=== PATIENT | male | born 1980 | race African-American/Black ===

== ENCOUNTER 2022-01-09 23:16 | Emergency (ER) | payer BC ==
--- OUTSIDE RECORDS SUMMARY | 2022-01-09 23:18 | XMS REPORT | Continuity of Care Document ---
:1980 Author Organization [facility] t Address [address] [place] [address] Care Team Providers Name Role Phone Chema Sandy Attending Clinician Unavailable DR MARTA Attending Clinician Unavailable SANDY Admitting Clinician Unavailable DR MARTA Admitting Clinician Unavailable Problems This patient has no known problems. Allergies, Adverse Reactions, Alerts Allergy Allergy Status Severity Reaction(s) Onset Inactive Treating Comm ents Source Name Type Date Date Clinician No Known DA Active [facility] s Medications Ordered Filled Start Stop Current Ordering Indication Dosage Frequency Signature Comments Components Source Medication Medication Date Date Medication? Clinician (SIG) Name Name Methylpheni Methylpheni 2020-0 2020- No Suraj [address] [facility] date HCl ER date HCl ER 05-29 [facility] before [facility]:00: 00:00 [facility] 00 :00 in the l morning Outpat[facility] ent Clinics Vital Signs Vital Name Observation Time Observation Value Comments Source Weight 2020-12-18 04:15:00 112.94 KG Height 2020-12-18 04:15:00 182.88 CM Height 2020-12-14 14:25:00 182.88 CM Weight 2020-12-14 14:25:00 112.03 KG Procedures Procedure Date / Time Performed Performing Clinician [facility] e EXCISION OF RIGHT FOOT 2020-12-18 00:00:00 [facility] Medical TENDON OPEN Center Encounters Start End Encounter Admission Attending Care Care Encounter Source Date/Time Date/Time Type Type Clinicians Facility Department ID 2021-11-15 Out[place], [place] [id number] [facility] 12:02:01 [facility] 2021-11-05 Outpatient Sandy, [place] [id number] [facility] 13:23:00 [facility]aj [id number] [facility] 2021-10-06 Outpatient Sandy, [place] [id number] [facility] 14:01:42 [facility]aj [id number] [facility] 2021-10-06 Outpatient Sandy, [place] [id number] [facility] 13:33:55 Suraj [id number] [facility] 2021-10-06 Outpatient Sandy, [place] [id number] [facility] 13:33:02 Suraj [id number] [facility] 2021-10-06 Outpatient Sandy, [place] [id number] [facility] 12:54:19 Suraj [id number] [facility] 2021-10-06 Outpatient Sandy, [place] [id number] [facility] 12:53:52 Suraj [id number] [facility] 2021-10-06 Outpatient Sandy, [place] [id number] [facility] 12:47:59 Suraj [id number] [facility] 2021-10-06 Outpatient Sandy, [place] [id number] [facility] 12:47:17 Suraj [id number] [facility] 2021-10-06 Outpatient Sandy, [place] [id number] [facility] 12:45:26 Suraj [id number] [facility] 2021-10-06 Outpatient Sandy, [place] [id number] [facility] 12:43:46 Suraj [id number] [facility] 2021-10-06 Outpatient Sandy, STLMLC [facility] 12:40:28 Suraj [id number] [facility] 2021-10-06 Outpatient Sandy, STLMLC [facility] 12:39:36 Suraj [id number] [facility] 2021-10-06 Outpatient Sandy, STLMLC [facility] 11:56:17 Suraj [id number] [facility] 2021-10-06 Outpatient Sandy, STLMLC [facility] 11:26:29 Suraj [id number] [facility] 2022-01-07 2022-01-07 ambulatory [facility] [id number] [facility] 2021-12-28 2021-12-28 ambulatory [facility] [id number] [facility] 2021-12-06 2021-12-06 ambulatory [facility] [id number] [facility] 2021-10-21 2021-10-21 ambulatory [facility]C [facility] [id number] [facility] 2021-09-20 2021-09-20 ambulatory [facility] [id number] [facility] 2021-08-04 2021-08-04 ambulatory [facility] [id number] [facility] 2021-06-02 2021-06-02 Outpatient [facility] [id number] [facility] 2021-04-19 2021-04-19 Outpatient [facility] [id number] [facility] 2021-04-12 2021-04-12 Outpatient [facility] [id number] [facility] 2021-04-12 2021-04-12 Outpatient [facility] [id number] [facility] 2021-04-12 2021-04-12 Outpatient [facility] [id number] [facility] 2021-03-25 2021-03-25 Outpatient [facility] [id number] [facility] 2021-02-24 2021-02-24 Outpatient [facility] [id number] [facility] 2020-12-30 2020-12-30 Outpatient [facility] [id number] [facility] 2020-12-18 2020-12-18 Outpatient Shirin [facility]O [facility] [id number] [address] 04:16:00 06:26:00 [facility] 2020-12-07 2020-12-07 Outpatient [facility] [id number] [facility] 2020-11-23 2020-11-23 Outpatient [facility] [id number] [facility] 2020-11-03 2020-11-03 Outpatient [facility] [id number] [facility] 2020-10-05 2020-10-05 Outpatient [facility] [id number] [facility] 2020-08-31 2020-08-31 Outpatient [facility] [id number] [facility] 2020-08-31 2020-08-31 Outpatient [facility] [id number] [facility] 2020-06-29 2020-06-29 Outpatient [facility] [id number] [facility] 2020-05-29 2020-05-29 [facility] [id number] [facility] 08[facility]21:00 08:21:00 t [employer] [facility] 2020-04-28 2020-04-28 [facility] [id number] [facility] 11:30:00 11:30:00 t [employer] [facility] 2020-03-23 2020-03-23 [facility] [id number] [facility] 08:45:00 08:45:00 t [employer] [facility] 2020-02-24 2020-02-24 [facility] [id number] [facility] 11:00:00 11:00:00 t [employer] [facility] Results This patient has no known results.
--- NOTE | 2022-01-10 00:04 | EDPHYS ---
Physician Documentation [facility] Name: Ronald Salazar Age: 41 yrs Sex: Male : 1980 Arrival Date: 01/09/2022 Time: 23:19 Bed 4 Private MD: JOCELYNE Physician Deion Ugarte HPI: 01/10 00:01 This 41 yrs old Black Male presents to ER via Ambulatory with complaints of Allergic jmm Reaction. 00:01 The patient presents with rash, redness of skin. Onset: The symptoms/episode jmm began/occurred gradually, 5 day(s) ago. Associated signs and symptoms: Pertinent positives: swelling. This a 41-year-old male with history of hypertension the presents emerged part with complaints of facial swelling symptoms initially began this past Monday with some localized swelling to the right side of his face. Denies known allergen. Patient now believes that he may have been exposed to poison tra. Denies shortness of breath or vomiting. Patient denies fever. Historical: - Allergies: 01/09 23:27 No Known Allergies; jb4 - Home Meds: 23:27 amlodipine oral [Active]; losartan oral [Active]; Methophenodate [Active]; jb4 - PMHx: 23:27 HTN; ADHD; jb4 - PSHx: 23:27 right foot; jb4 - Immunization history:: Adult Immunizations up to date. - Social history:: Smoking status: Patient denies any tobacco usage or history of. Patient uses alcohol, occasionally. Patient/guardian denies using street drugs. ROS: 01/10 00:01 Constitutional: Negative for fever, chills, and weight loss, Cardiovascular: Negative jmm for chest pain, palpitations, and edema, Respiratory: Negative for shortness of breath, cough, wheezing, and pleuritic chest pain. Skin: Positive for erythema. All other systems are negative. Exam: 00:01 Constitutional: This is a well developed, well nourished patient who is awake, alert, jmm and in no acute distress. 00:01 Chest/axilla: Normal chest wall appearance and motion. Cardiovascular: Regular rate and rhythm. No edema appreciated Respiratory: Normal respirations, no respiratory distress appreciated Abdomen/GI: Non distended, soft Back: Normal ROM Skin: General appearance color normal MS/ Extremity: Moves all extremities, no obvious deformities appreciated, no edema noted to the lower extremities Neuro: Awake and alert Psych: Behavior is normal, Mood is normal, Patient is cooperative and pleasant 00:01 Head/face: Facial erythema noted. 00:01 ENT: No pharyngeal edema appreciated. Vital Signs: 01/09 23:24 BP 144 / 109; Pulse 91; Resp 16; Temp 97.9(TE); Pulse Ox 98% on R/A; Weight 108.86 kg jb4 (R); Height 6 ft. 1 in. (185.42 cm) (R); Pain 10/10; 01/10 00:18 BP 141 / 99; Pulse 89 MON; Resp 18 S; Pulse Ox 97% on R/A; as6 01/09 23:24 Body Mass Index 31.66 (108.86 kg, 185.42 cm) jb4 MDM: 01/09 23:37 Patient medically screened. [facility] 01/10 00:03 Data reviewed: vital signs, nurses notes. Counseling: I had a detailed discussion with george the patient and/or guardian regarding: the historical points, exam findings, and any diagnostic results supporting the discharge/admit diagnosis, the need for outpatient follow up, to return to the emergency department if symptoms worsen or persist or if there are any questions or concerns that arise at home. Administered Medications: 00:18 Drug: Decadron (dexamethasone) 10 mg Route: IM; Site: right deltoid; as6 00:24 Follow up: Response: No adverse reaction as6 Disposition Summary: 01/10/22 00:04 Discharge Ordered Location: Home [facility] Condition: Stable [facility] Diagnosis - Rash and other nonspecific skin eruption [facility] Followup: [facility] - With: Private Physician - When: 2 - 3 days - Reason: Recheck today's complaints, Continuance of care, Re-evaluation by your physician Discharge Instructions: - Discharge Summary Sheet [facility] - Rash, Adult [facility] Forms: - Medication Reconciliation Form [facility] - Thank You Letter [facility] - Antibiotic Education [facility] - Prescription Opioid Use [facility] Prescriptions: - Cephalexin 500 mg Oral Capsule - take 1 capsule by ORAL route every 6 hours for 10 days; 40 capsule; Refills: 0, [facility] Product Selection Permitted - Hydroxyzine HCl 25 mg Oral Tablet - take 1 tablet by ORAL route every 6 hours As needed; 30 tablet; Refills: 0, [facility] Product Selection Permitted - Prednisone 20 mg Oral Tablet - take 3 tablets by ORAL route once daily for 5 days Please take 3 tabs by mouth [facility] daily for 3 days, then take 2 tabs by mouth daily for 3 days, then take 1 tab by mouth daily for 3 days, then take one half tab by mouth daily for 3 days; 20 tablet; Refills: 0, Product Selection Permitted Signatures: Efrem Matson PA PA jmm Bryson, James RN RN jb4 Gerard Zarate RN RN as6
--- NOTE | 2022-01-10 00:04 | ER ---
Nurse's Notes [facility] Name: Ronald Salazar Age: 41 yrs Sex: Male : 1980 Arrival Date: 01/09/2022 Time: 23:19 Bed 4 Private MD: Diagnosis: Rash and other nonspecific skin eruption Presentation: 01/09 23:24 Chief complaint: Patient states: I cut a vine on Monday. I think it was poison Janessa but jb4 did not know at the time. The rash started on my arm and spread to my groin and my face and my other arm. It has been getting worse sense. 50mg benadryl at 1999. Coronavirus screen: At this time, the client does not indicate any symptoms associated with coronavirus-19. Ebola Screen: No symptoms or risks identified at this time. Onset: The symptoms/episode began/occurred gradually. Anaphylaxis evaluation, no signs or symptoms of anaphylaxis were noted. Initial Sepsis Screen: Does the patient meet any 2 criteria? No. Patient's initial sepsis screen is negative. Does the patient have a suspected source of infection? No. Patient's initial sepsis screen is negative. Risk Assessment: Do you want to hurt yourself or someone else? Patient reports no desire to harm self or others. Onset of symptoms was January 02, 2022. Transition of care: patient was not received from another setting of care. 23:24 Method Of Arrival: Ambulatory jb4 23:24 Acuity: CATERINA 3 jb4 Historical: - Allergies: 23:27 No Known Allergies; jb4 - Home Meds: 23:27 amlodipine oral [Active]; losartan oral [Active]; Methophenodate [Active]; jb4 - PMHx: 23:27 HTN; ADHD; jb4 - PSHx: 23:27 right foot; jb4 - Immunization history:: Adult Immunizations up to date. - Social history:: Smoking status: Patient denies any tobacco usage or history of. Patient uses alcohol, occasionally. Patient/guardian denies using street drugs. Screenin/02 00:19 Abuse screen: Denies threats or abuse. Denies injuries from another. Nutritional as6 screening: No deficits noted. Tuberculosis screening: No symptoms or risk factors identified. Fall Risk None identified. Assessment: 00:18 General: Appears in no apparent distress. uncomfortable, Behavior is calm, cooperative. as6 Pain: Denies pain. Neuro: Level of Consciousness is awake, alert, obeys commands, Oriented to person, place, time, situation. Cardiovascular: Patient's skin is warm and dry. Respiratory: Respiratory effort is even, unlabored, Respiratory pattern is regular, symmetrical. Derm: Rash noted that is itchy, red, raised, widespread. Vital Signs: 01/09 23:24 BP 144 / 109; Pulse 91; Resp 16; Temp 97.9(TE); Pulse Ox 98% on R/A; Weight 108.86 kg jb4 (R); Height 6 ft. 1 in. (185.42 cm) (R); Pain 10/10; 01/10 00:18 BP 141 / 99; Pulse 89 MON; Resp 18 S; Pulse Ox 97% on R/A; as6 01/09 23:24 Body Mass Index 31.66 (108.86 kg, 185.42 cm) jb4 ED Course: 01/09 23:19 Patient arrived in ED. bp1 23:27 Triage completed. jb4 23:27 Arm band placed on right wrist. jb4 23:34 Gerard Zarate, BETTY is Primary Nurse. as6 23:37 Efrem Matson PA is PHCP. [facility] 23:37 Deion Ugarte MD is Attending Physician. george 01/10 00:19 No provider procedures requiring assistance completed. Patient did not have IV access as6 during this emergency room visit. 00:20 Bed in low position. Call light in reach. Side rails up X2. Adult w/ patient. NIBP on. as6 Administered Medications: 00:18 Drug: Decadron (dexamethasone) 10 mg Route: IM; Site: right deltoid; as6 00:24 Follow up: Response: No adverse reaction as6 Outcome: 00:04 Discharge ordered by . george 00:19 Discharged to home ambulatory, with family. as6 00:19 Condition: stable 00:22 Discharge instructions given to patient, family, Instructed on discharge instructions, as6 follow up and referral plans. medication usage, Demonstrated understanding of instructions, follow-up care, medications, Prescriptions given X 3. 00:24 Patient left the ED. as6 Signatures: Efrem Matson PA PA jmm Bryson, James, RN RN jb4 Roxane Ac Ashby, RN RN as6
[2022-01-10] MEDS ORDERED: dexAMETHasone 10 MG/ML VIAL ONE (00:17)
[2022-01-10 01:54] VITALS: TEMP 97.9
[2022-01-10 01:55] VITALS: BP 141/99; O2SAT 97
== END 2022-01-10 00:24 | disposition home or self-care (01) ==
LOC: ER 23:16
DX: R21 Rash and other nonspecific skin eruption (principal); I10 Essential (primary) hypertension
CPT/HCPCS: 96372; 99283; J1100

== ENCOUNTER 2024-08-04 02:34 | Emergency (ER) | payer OTHER ==
[2024-08-04] MEDS ORDERED: IPRATROPIUM BROM 0.5MG/2.5ML ONE (03:06)
[2024-08-04] MEDS ORDERED: ALBUTEROL 2.5 MG/3 ML NEB SOL ONE (03:06)
[2024-08-04] MEDS ORDERED: predniSONE 20 MG TAB ONE (03:06)
[2024-08-04 03:49] LABS: Absolute Eosinophils 0.2 K/uL (0-0.5); Absolute Lymphocytes (CBC) 0.7 K/uL (0.7-4.9); Absolute Monocytes 0.9 K/uL (0.1-1.3); Absolute Neutrophil 6.9 K/uL (1.8-8.0); Basophils % 0.3 % (0-1.3); Hematocrit 44.6 % (39.6-49.0); Hemoglobin 15.1 g/dL (13.6-17.9); Lymphocytes % 8.3 % (15.3-44.8); MCH 29.4 pg (27.0-35.0); MCHC 33.7 g/dL (32.0-36.0); MPV 7.8 fL (7.6-11.3); Monocytes % 10.9 % (3.3-12.3); Neutrophils % 78.5 % (41.7-73.7); Platelets 194 thou/uL (152-406); RBC Red Blood Cell Count 5.13 M/uL (4.33-5.43); Red Cell Distribution Width 13.7 % (12.1-15.2)
[2024-08-04 04:10] LABS: ALT/SGPT 64 U/L (16-61); AST/SGOT 37 U/L (15-37); Albumin 3.1 g/dL (3.4-5.0); Alkaline Phosphatase 50 U/L (45-117); Anion Gap 8.3 mEq/L (5.0-15.0); BUN Blood Urea Nitrogen 18 mg/dL (7-18); Bicarbonate 27 mEq/L (21-32); Bilirubin Total 0.4 mg/dL (0.2-1.0); Glomerular Filtration Rate 84 ml/min (=/>90); Glucose Level 120 mg/dL (74-106); Potassium 4.3 mEq/L (3.5-5.1); Protein, Total 6.1 g/dL (6.4-8.2); Sodium Level 141 mEq/L (136-145); Troponin High Sensitivity 7.5 pg/mL (<58.9)
[2024-08-04 04:13] LABS: Bilirubin Direct < 0.2 mg/dL (0-0.2); Bilirubin Indirect, Calculated 0.2 mg/dL (0.2-0.8)
--- NOTE | 2024-08-04 04:39 | ER ---
Nurse's Notes [facility] Name: Ronald Salazar Age: 44 yrs Sex: Male : 1980 Arrival Date: 08/04/2024 Time: 02:34 Bed 20 Private MD: Suraj Sandy Diagnosis: Acute bronchitis, unspecified Presentation: 08/04 02:52 Chief complaint: Patient states: dizzy, chest pain, congestion, coughing up yellow and vc1 green sputum, eyeball pain, weak times 2 days. Coronavirus screen: Client denies travel out of the [place] in the last 14 days. congestion, cough unrelated to allergies, fatigue, fever, muscle pain, Client presents with at least one sign or symptom that may indicate coronavirus-19. Ebola Screen: Patient negative for fever greater than or equal to 101.5 degrees Fahrenheit, and additional compatible Ebola Virus Disease symptoms Patient denies exposure to infectious person. Patient denies travel to an Ebola-affected area in the 21 days before illness onset. No symptoms or risks identified at this time. Initial Sepsis Screen: Does the patient meet any 2 criteria? No. Patient's initial sepsis screen is negative. Does the patient have a suspected source of infection? No. Patient's initial sepsis screen is negative. Risk Assessment: Do you want to hurt yourself or someone else? Patient reports no desire to harm self or others. Onset of symptoms was August 02, 2024. 02:52 Method Of Arrival: Ambulatory vc1 02:52 Acuity: CATERINA 4 vc1 Triage Assessment: 03:00 General: Appears in no apparent distress. ill, well groomed, well developed, well vc1 nourished, Behavior is calm, cooperative, appropriate for age. General: Reports fever for feeling ill for fatigue for 1-2 days. Pain: Complains of pain in chest and behind eyeballs Pain currently is 8 out of 10 on a pain scale. Quality of pain is described as pressure. EENT: No deficits noted. No signs and/or symptoms were reported regarding the EENT system. Neuro: Level of Consciousness is awake, alert, obeys commands, Oriented to person, place, time, situation, Appropriate for age. Cardiovascular: Patient's skin is warm and dry. Respiratory: Reports cough that is productive, Airway is patent Respiratory effort is even, unlabored, Respiratory pattern is regular, symmetrical, Breath sounds are clear bilaterally. GI: Abdomen is round non-distended. : No deficits noted. No signs and/or symptoms were reported regarding the genitourinary system. Derm: Skin is intact, is healthy with good turgor, Skin is dry, Skin is normal, Skin temperature is warm. Musculoskeletal: Circulation, motion, and sensation intact. Range of motion: intact in all extremities. Historical: - Allergies: 02:55 Keflex; vc1 - Home Meds: 02:55 amlodipine 5 mg oral tablet [Active]; Methophenodate 60/40 [Active]; lisinopril 10 mg vc1 oral tablet [Active]; Flomax 0.4 mg Oral capsule [Active]; - PMHx: 02:55 adhd; HTN; vc1 - PSHx: 02:55 right foot; UroLift; vc1 - Immunization history:: Client reports receiving the 2nd dose of the Covid vaccine. - Infectious Disease History:: Denies. - Social history:: Smoking status: Patient denies any tobacco usage or history of. - Family history:: not pertinent. Screenin:00 [facility] ED Fall Risk Assessment (Adult) History of falling in the last 3 months, vc1 including since admission No falls in past 3 months (0 pts) Confusion or Disorientation No (0 pts) Intoxicated or Sedated No (0 pts) Impaired Gait No (0 pts) Mobility Assist Device Used No (0 pt) Altered Elimination No (0 pt) Score/Fall Risk Level 0 - 2 = Low Risk Oriented to surroundings, Maintained a safe environment, Educated pt \T\ family on fall prevention, incl call for assistance when getting out of bed. Abuse screen: Denies threats or abuse. Nutritional screening: No deficits noted. Tuberculosis screening: No symptoms or risk factors identified. Assessment: 02:44 General: Appears in no apparent distress. comfortable, Behavior is calm, cooperative, rg5 appropriate for age. 02:44 Pain: Complains of pain in chest. Neuro: Level of Consciousness is awake, alert, obeys rg5 commands, Oriented to person, place, time, situation. Cardiovascular: Reports chest pain, Heart tones S1 S2 Patient's skin is warm and dry. Rhythm is sinus rhythm. Respiratory: Reports cough that is productive, Airway is patent Trachea midline Respiratory effort is even, unlabored, Respiratory pattern is regular, symmetrical. Respiratory: Breath sounds are clear bilaterally. GI: Abdomen is round Abd is soft and non tender. : No signs and/or symptoms were reported regarding the genitourinary system. EENT: No deficits noted. Derm: Skin is intact, Skin is dry, Skin is normal, Skin temperature is cool. Musculoskeletal: Circulation, motion, and sensation intact. Range of motion: intact in all extremities. 03:40 Reassessment: Patient and/or family updated on plan of care and expected duration. Pain rg5 level reassessed. Patient is alert, oriented x 3, equal unlabored respirations, skin warm/dry/pink. Patient states feeling better. Patient states symptoms have improved. 04:45 Reassessment: Patient and/or family updated on plan of care and expected duration. Pain rg5 level reassessed. Patient is alert, oriented x 3, equal unlabored respirations, skin warm/dry/pink. Vital Signs: 02:52 BP 162 / 103; Pulse 64; Resp 16; Temp 99.4; Pulse Ox 98% ; Weight 117.93 kg; Height 6 vc1 ft. 0 in. ; Pain 8/10; 02:56 BP 139 / 100; Pulse 67; Resp 17; Pulse Ox 100% on R/A; rg5 04:25 BP 136 / 73; Pulse 72; Resp 17; Pulse Ox 97% on R/A; Pain 0/10; rg5 02:52 Body Mass Index 35.26 (117.93 kg, 182.88 cm) vc1 02:52 Pain Scale: Adult vc1 04:25 Pain Scale: Adult rg5 Carrie Coma Score: 02:44 Eye Response: spontaneous(4). Motor Response: obeys commands(6). Verbal Response: rg5 oriented(5). Total: 15. ED Course: 02:38 Patient arrived in ED. gm2 02:39 Adria Sunshine MD is Attending Physician. rt 02:39 Suraj Sandy DO is Private Physician. gm2 02:44 Door closed. Noise minimized. Warm blanket given. Verbal reassurance given. rg5 02:44 No provider procedures requiring assistance completed. Inserted saline lock: 20 gauge rg5 in right antecubital area, using aseptic technique. Blood collected. Flushed with 10 mL NS. 02:51 Jacob Pierre, RN is Primary Nurse. rg5 02:54 Triage completed. vc1 02:59 Arm band placed on right wrist. vc1 03:00 Patient has correct armband on for positive identification. Bed in low position. Call vc1 light in reach. Pulse ox on. NIBP on. 03:28 XRAY Chest (1 view) In Process Unspecified. EDMS 03:42 EKG done, by chief technician x ray. af3 04:38 Adria Sunshine MD is Referral Physician. rt 04:45 Provided Education on: post er care. rg5 04:45 IV discontinued, bleeding controlled, No redness/swelling at site. Pressure dressing rg5 applied. Administered Medications: 03:10 Drug: DuoNeb Nebulize (3:1) (2.5 mg - 0.5 mg) 3 ml Nebulizer once Route: Nebulizer; rg5 03:27 Follow up: Response: No adverse reaction rg5 03:15 Drug: predniSONE PO 40 mg PO once Route: PO; rg5 03:27 Follow up: Response: No adverse reaction rg5 Medication: 03:02 VIS not applicable for this client. vc1 Outcome: 04:39 Discharge ordered by MD. rt 04:46 Discharged to home ambulatory, rg5 04:46 Condition: stable 04:46 Discharge instructions given to patient, Instructed on discharge instructions, follow up and referral plans. Demonstrated understanding of instructions, follow-up care, medications, Prescriptions given X 2, 04:46 Patient left the ED. rg5 Signatures: Dispatcher [employer] Genesis Lucio RN RN vc1 Adria Sunshine MD MD rt Angelica Limon [facility] Jacob Pierre, BETTY RN rg5 Cookie Fleming af3
--- NOTE | 2024-08-04 04:39 | EDPHYS ---
Physician Documentation [facility] Name: Ronald Salazar Age: 44 yrs Sex: Male : 1980 Arrival Date: 08/04/2024 Time: 02:34 Bed 20 Private MD: [facility] ED Physician Adria Sunshine HPI: 08/04 04:58 This 44 yrs old Black Male presents to ER via Ambulatory with complaints of Cough, rt Congestion, Breathing Difficulty, Fever. 04:58 Patient presents to the ED with 2 days of cough, pleuritic chest pain, nasal rt congestion. Denies other acute complaints at this time, symptoms are moderate in severity, no other aggravating or elevating factors.. Historical: - Allergies: 02:55 Keflex; vc1 - Home Meds: 02:55 amlodipine 5 mg oral tablet [Active]; Methophenodate 60/40 [Active]; lisinopril 10 mg vc1 oral tablet [Active]; Flomax 0.4 mg Oral capsule [Active]; - PMHx: 02:55 adhd; HTN; vc1 - PSHx: 02:55 right foot; UroLift; vc1 - Immunization history:: Client reports receiving the 2nd dose of the Covid vaccine. - Infectious Disease History:: Denies. - Social history:: Smoking status: Patient denies any tobacco usage or history of. - Family history:: not pertinent. ROS: 04:58 MS/Extremity: Negative for injury and deformity, Skin: Negative for injury, rash, and rt discoloration, Neuro: Negative for headache, weakness, numbness, tingling, and seizure, 04:58 Constitutional: Positive for body aches, fever, malaise, 04:58 ENT: Positive for rhinorrhea, sore throat, 04:58 Cardiovascular: Positive for chest pain, Negative for edema, 04:58 Respiratory: Positive for cough, shortness of breath, Exam: 04:58 Constitutional: This is a well developed, well nourished patient who is awake, alert, rt and in no acute distress. Head/Face: Normocephalic, atraumatic. Chest/axilla: Normal chest wall appearance and motion. Nontender with no deformity. No lesions are appreciated. Cardiovascular: Regular rate and rhythm with a normal S1 and S2. No gallops, murmurs, or rubs. Normal PMI, no JVD. No pulse deficits. Abdomen/GI: Soft, non-tender, with normal bowel sounds. No distension or tympany. No guarding or rebound. No evidence of tenderness throughout. Skin: Warm, dry with normal turgor. Normal color with no rashes, no lesions, and no evidence of cellulitis. MS/ Extremity: Pulses equal, no cyanosis. Neurovascular intact. Full, normal range of motion. Neuro: Awake and alert, GCS 15, oriented to person, place, time, and situation. Cranial nerves II-XII grossly intact. Motor strength 5/5 in all extremities. Sensory grossly intact. Cerebellar exam normal. Normal gait. 04:58 Respiratory: Mild wheezes heard on all lung joseph, no respiratory distress, 05:02 ECG was reviewed by the Attending Physician. rt Vital Signs: 02:52 BP 162 / 103; Pulse 64; Resp 16; Temp 99.4; Pulse Ox 98% ; Weight 117.93 kg; Height 6 vc1 ft. 0 in. ; Pain 8/10; 02:56 BP 139 / 100; Pulse 67; Resp 17; Pulse Ox 100% on R/A; rg5 04:25 BP 136 / 73; Pulse 72; Resp 17; Pulse Ox 97% on R/A; Pain 0/10; rg5 02:52 Body Mass Index 35.26 (117.93 kg, 182.88 cm) vc1 02:52 Pain Scale: Adult vc1 04:25 Pain Scale: Adult rg5 [place] Coma Score: 02:44 Eye Response: spontaneous(4). Motor Response: obeys commands(6). Verbal Response: rg5 oriented(5). Total: 15. MDM: 02:53 Medical Screening Exam initiated rt 05:02 Differential Diagnosis: Other Pneumonia, viral syndrome, bronchitis. Data reviewed: rt vital signs, nurses notes, lab test result(s), EKG, radiologic studies. Consideration of Admission/Observation Escalation of care including admission/observation considered. I considered the following discharge prescriptions or medication management in the emergency department Medications were administered in the Emergency Department. See MAR. Independent interpretation of the following test(s) in the Emergency Department X-Ray: My interpretation is No infiltrate seen on my interpretation of x-ray images. Care significantly affected by the following chronic conditions: Hypertension. Counseling: I had a detailed discussion with the patient and/or guardian regarding the historical points, exam findings, and any diagnostic results supporting the discharge/admit diagnosis, lab results, radiology results, the need for outpatient follow up, to return to the emergency department if symptoms worsen or persist or if there are any questions or concerns that arise at home. Response to treatment: the patient's symptoms have markedly improved after treatment. 08/04 03:00 Order name: Basic Metabolic Panel; Complete Time: 04:16 rt 08/04 03:00 Order name: CBC with Diff; Complete Time: 04:16 rt 08/04 03:00 Order name: LFT's; Complete Time: 04:16 rt 08/04 03:00 Order name: Troponin HS; Complete Time: 04:16 rt 08/04 03:00 Order name: Influenza Screen (a \T\ B); Complete Time: 04:16 rt 08/04 03:00 Order name: XRAY Chest (1 view) rt 08/04 03:00 Order name: Cardiac monitoring; Complete Time: 03:27 rt 08/04 03:00 Order name: EKG - Nurse/Tech; Complete Time: 03:41 rt 08/04 03:00 Order name: IV Saline Lock; Complete Time: 03: rt 08/04 03:00 Order name: Labs collected and sent; Complete Time: 03: rt 08/04 03:00 Order name: O2 Per Protocol; Complete Time: 03: rt 08/04 03:00 Order name: O2 Sat Monitoring; Complete Time: 03:27 rt EC:02 Rate is 64 beats/min. Rhythm is regular, Normal Sinus Rhythm with No ectopy. QRS [place] rt is Normal. TX interval is normal. QRS interval is normal. QT interval is normal. No Q waves. T waves are Normal. No ST changes noted. Interpreted by me. Administered Medications: 03:10 Drug: DuoNeb Nebulize (3:1) (2.5 mg - 0.5 mg) 3 ml Nebulizer once Route: Nebulizer; rg5 03:27 Follow up: Response: No adverse reaction rg5 03:15 Drug: predniSONE PO 40 mg PO once Route: PO; rg5 03:27 Follow up: Response: No adverse reaction rg5 Disposition Summary: 08/04/24 04:39 Discharge Ordered Notes: Location: Home rt Problem: new rt Symptoms: have improved rt Condition: Stable rt Diagnosis - Acute bronchitis, unspecified rt Followup: rt - With: Adria Sunshine MD - When: 2 - 3 days - Reason: Discharge Instructions: - Discharge Summary Sheet rt - Acute Bronchitis, Adult rt Forms: - Medication Reconciliation Form rt - Antibiotic Education rt - Prescription Opioid Use rt - Patient Portal Instructions rt - Leadership Thank You Letter rt - Work release form af3 Prescriptions: - Tessalon Perles 100 mg Oral Capsule - take 1 capsule ORAL route every 8 hours As needed; 15 capsule; Refills: 0, rt Product Selection Permitted - Prednisone 20 mg Oral tablet - take 2 tablets ORAL route once daily; 8 tablet; Refills: 0, Product Selection rt Permitted Signatures: Dispatcher [employer] EDMS Genesis Lucio, RN RN vc1 Adria Sunshine MD MD rt Jacob Pierre, RN RN rg5 Corrections: (The following items were deleted from the chart) 03:00 03:00 BASIC METABOLIC PANEL+C.LAB.BRZ ordered. EDMS EDMS 03:00 03:00 CBC+H.LAB.BRZ ordered. EDMS EDMS 03:00 03:00 HEPATIC FUNCTION+C.LAB.BRZ ordered. EDMS EDMS 03:00 03:00 Troponin High Sensitivity+C.LAB.BRZ ordered. EDMS EDMS 03:00 03:00 Influenza Screen (A \T\ B)+BA.LAB.BRZ ordered. EDMS EDMS 03:01 03:01 Chest Single View+RAD.RAD.BRZ ordered. EDMS EDMS
--- NOTE | 2024-08-04 05:57 | RAD REPORT ---
EXAM DESCRIPTION: XR CHEST 1 VIEW 08/04/2024 3:33 AM INFORMATION SPECIALIST CLINICAL HISTORY: 44 years, Male, Cough. COMPARISON: XR Chest 07/23/2024. FINDINGS: 1 view of the chest (AP portable projection) was obtained. No prior films are available at this althea e for comparison. There is normal lung volume. Mediastinum: The cardiomediastinal silhouette appears normal in size and shape. Lungs: No areas of consolidations or masses are identified. Heart: The heart is normal in size. Thoracic aorta: The thoracic aorta demonstrate to be normal. Pulmonary vasculature: The pulmonary vasculature is normal in distribution. Pleura: The costophrenic angles demonstrate to be sharp. Osseous structures: The bony structures demonstrate to be within normal limits. Other: None. IMPRESSION: No acute cardiopulmonary disease is seen Electronically signed by: Axel Ramires MD 08/04/2024 03:52 AM INFORMATION SPECIALIST Due to temporary technical issues with the PACS/[employer] reporting system, reports are being sudha d by the in-house radiologist without review as a courtesy to ensure prompt reporting the interpreting radiologist is fully responsible for the content of the report. Transcribed Date/Time: 08/04/2024 5:57 AM
[2024-08-04 06:37] VITALS: TEMP 99.4
[2024-08-04 06:40] VITALS: BP 136/73; O2SAT 97
--- NOTE | 2024-08-05 12:00 | EKG ---
Test Date: 2024-08-04 Test Time: 03:38:23 Civil Manager: AF MEASUREMENT RESULTS: Intervals: Rate: 64 SC: 150 QRSD: 90 QT: 418 QTc: 431 [place]: P: 41 SC: 150 QRS: 69 T: 30 INTERPRETIVE STATEMENTS: Normal sinus rhythm Normal ECG Compared to ECG 07/23/2024 09:14:35 No significant changes Electronically Signed On 08-05-24 11:59:08 [employer]UM[employer]IPE FITTING by Tomás Walton
== END 2024-08-04 04:46 | disposition home or self-care (01) ==
LOC: ER 02:34
DX: J20.9 Acute bronchitis, unspecified (principal); I10 Essential (primary) hypertension
CPT/HCPCS: 93005; 85025; 80048; 36415; 80076; 84484; 87804 ×2; 71045; 99285; J7512; J7613; J7644

== ENCOUNTER 2025-04-29 12:35 | Day surgery (SDC) | payer OTHER ==
[2025-04-15 11:35] LABS: Absolute Lymphocytes (CBC) 1.7 K/uL (0.7-4.9); Hematocrit 45.6 % (39.6-49.0); Hemoglobin 15.2 g/dL (13.6-17.9); MCH 28.2 pg (27.0-35.0); MCHC 33.2 g/dL (32.0-36.0); MCV 84.9 fL (80-100); MPV 8.4 fL (7.6-11.3); Nucleated RBC Absolute Count 0.0 (0-0); Nucleated Red Blood Cells % 0.1 % (0-0); RBC Red Blood Cell Count 5.37 M/uL (4.33-5.43); White Blood Count 6.30 thou/uL (4.3-10.9)
[2025-04-15 11:38] LABS: Sqamous Epithelial <5 /HPF (None Seen); Urine Culture Reflex Order REFLEXED; Urine Microscopic Reflex YN ORDER UMIC; Urine Yeast (Budding) Trace /HPF (None Seen)
[2025-04-15 11:41] LABS: PT Prothrombin Time 14.0 SECONDS (10-13.0); Protime INR 1.25
[2025-04-15 11:52] LABS: Anion Gap 8.9 mEq/L (5.0-15.0); BUN Blood Urea Nitrogen 12.0 mg/dL (7-18); Glucose Level 94.0 mg/dL (74-106); Potassium 3.9 mEq/L (3.5-5.1)
--- NOTE | 2025-04-15 14:27 | RAD REPORT ---
EXAMINATION: TWO VIEW CHEST XR CLINICAL INDICATION: Male, 44 years old. [facility] Pre-op pending TUIP. Hypertension TECHNIQUE: 2 view radiographs of the chest were performed. COMPARISON: 08/04/2024 FINDINGS: The lungs are well inflated and clear. No pneumothorax or sizable effusion. The heart is normal in si ze. Mediastinal contours are unremarkable. IMPRESSION: No acute or significant abnormalities.
[2025-04-29] MEDS: Ringers Lactate 1,000 ML IV ONE (13:10)
[2025-04-29] MEDS ORDERED: MIDAZOLAM HCL 2 MG/2 ML INJ ONE (15:09)
[2025-04-29] MEDS ORDERED: KETOROLAC 30 MG/ML INJ ONE (15:09)
[2025-04-29] MEDS ORDERED: FENTANYL CITR 100 MCG/2 ML ONE (15:09)
[2025-04-29] MEDS ORDERED: ONDANSETRON 4 MG/2 ML VIAL ONE (15:09)
[2025-04-29] MEDS ORDERED: LIDOCAINE 1% MPF 5 ML VIAL ONE (15:10)
[2025-04-29] MEDS: CIPROFLOXACIN 400mg IV 400 MG/200 ML BAG IV ONE (15:45)
--- NOTE | 2025-04-29 16:29 | P.OP ---
Date of Service: 04/29/25 Preoperative diagnoses: BPH with LUTS h/o UroLift 07/2024 High bladder neck/primary bladder neck dysfunction Postoperative diagnoses: BPH with LUTS h/o UroLift 07/2024 High bladder neck/primary bladder neck dysfunction Principal procedures: Transurethral incision of the prostate/TUIP Insertion of 22 Mongolian three-way Salvador catheter Indications for procedure: 44-year-old gentleman with obstructive LUTS due to BPH initially managed via UroLift with modest improvement yet residual bothersome LUTS. Since his LUTS were improved with adding back alpha-lary therapy and the cystoscopic evaluation revealed persistence of the elevated bladder neck consistent with a primary bladder neck dysfunction, I counseled him that further improvement would only be achieved likely with surgical resection by incising the bladder neck. We discussed the likelihood of retrograde ejaculation after such a procedure relative to a lower risk of erectile dysfunction since this was not going to be an extensive TURP. Procedure note: The patient was consented in the preoperative holding area before being transferred to the operative suite where general anesthesia was induced. He was given ciprofloxacin 40 mg IV antimicrobial prophylaxis, and pneumoboots were provided for DVT prophylaxis. He was placed in the lithotomy position, padded and secured to the table appropriately. His genitalia was prepped with Hibiclens and he was draped in standard fashion. The case was begun using urethral sounds to dilate the meatus and fossa navicularis to 32 Mongolian. Then, using the 26 Mongolian bipolar resectoscope sheath and a visual obturator, the urethra was traversed and elevated via the prostatic urethra up and beyond the high bladder neck ultimately entering the bladder with ease. The bladder was decompressed of fluid and urine and the prostate channel was again surveyed. Evidence of prior UroLift with lateralization of the lateral lobar tissue was present with the residual obstruction due to the elevated median bar. As a result, I switched the visual obturator for a thin resection loop, and I began bipolar resection and normal saline to resect the elevated bladder neck down until it was level with the trigone. I continued the resection to create a trough from the 5:00 PM to the 7:00 PM posteriorly, and from the bladder neck al l the way to the verumontanum. Careful fulguration was performed to achieve hemostasis. Prostate chips were removed and sent for pathologic analysis. Then, with the bladder completely decompressed, I surveyed the channel created, and there was a beautiful continuous channel present from the verumontanum and through the bladder neck into the bladder with the bladder completely decompressed. As a result, I further ensured hemostasis by fulgurating any venous ooze, then I placed a 22 Mongolian two-way Salvador catheter after removing the resectoscope. I placed 30 cc of sterile water in the balloon and the catheter was connected to a leg bag. He was then awakened from general anesthesia after being taken out of the lithotomy position, transferred to a stretcher, and then transferred to the recovery room in good condition. Complications: None Discharge disposition: He may remove the catheter at home tomorrow morning 7 AM sharp with instructions that he must void with relative ease prior to 1 PM or seek clinic evaluation before 3 PM. Subsequent follow-up should be established in approximately 3 months time interval assessment of his residual LUTS.
[2025-04-29 16:38] VITALS: O2SAT 97
[2025-04-29] MEDS ORDERED: CODEINE 30MG/APAP 300MG TAB ONE (17:20)
[2025-04-29] MEDS ORDERED: OXYBUTYNIN ER 5 MG TAB PO ONE (17:21)
[2025-04-29] MEDS ORDERED: PHENAZOPYRIDINE 100MG TAB PO ONE (17:21)
[2025-04-29] MEDS: PHENAZOPYRIDINE 100MG TAB PO ONE (17:24)
[2025-04-29] MEDS: OXYBUTYNIN ER 5 MG TAB PO ONE (17:24)
[2025-04-29] MEDS: CODEINE 30MG/APAP 300MG TAB PO PRN (17:24)
[2025-04-29 18:08] VITALS: BP 136/96; TEMP 97
== END 2025-04-29 17:35 | disposition home or self-care (01) ==
LOC: OR 12:35
PROVIDERS: ATTEND Urology
PROC: 0TT Urinary System, Resection (ICD-10-PCS; 2025-04-29)
PROC: 0T7D8ZZ Dilation of Urethra, Via Natural or Artificial Opening Endoscopic (ICD-10-PCS; principal; 2025-04-29 14:45)
DX: N40.1 Benign prostatic hyperplasia with lower urinary tract symptoms (principal); N36.44 Muscular disorders of urethra
CPT/HCPCS: 93005; 87088; 85025; 81001; 87086; 80048; 36415; 85610; 71046; 52450; J2704; J2003; J2250; J3010; J1100; J2405; J0744; J7120